=== PATIENT | male | born 1940 | race Hispanic/Latino ===

== ENCOUNTER 2017-06-21 16:09 | Emergency (ER) | payer MEDICARE ==
--- NOTE | 2017-06-21 16:49 | ED PDOC ---
HPI: Psych/Substance Abuse Time Seen by Provider: 06/21/17 16:47 Chief Complaint (Nursing): Psychiatric Evaluation Chief Complaint (Provider): SUICIDAL IDEATION History Per: Patient (77 Y/O MALE HERE FROM [facility] FOR EVALUATION OF DEPRESSION/SUICIDAL IDEATION X 3 WEEKS WORSENING. PATIENT STATES HE WOULD LIKE TO AND IS HOPING GOD WILL TAKE HIM. DENIES ANY PLAN, STATES HE IS JUST WAITING FOR . DENIES ANY PAIN/DENIES ANY REASON FOR CHANGE IN MENTAL STATUS.) Past Medical History Reviewed: Historical Data, Nursing Documentation, Vital Signs Vital Signs: Last Vital Signs Temp 98.5 F 06/21/17 16:14 Pulse 70 06/21/17 16:14 Resp 18 06/21/17 16:14 BP 155/83 H 06/21/17 16:14 Pulse Ox 95 06/21/17 16:14 - Family History Family History: States: No Known Family Hx - Allergies Allergies/Adverse Reactions: Allergies Allergy/AdvReac Type Severity Reaction Status Date / Time No Known Allergies Allergy Verified 06/21/17 16:13 Review of Systems ROS Statement: Except As Marked, All Systems Reviewed And Found Negative Physical Exam - Reviewed Nursing Documentation Reviewed: Yes Vital Signs Reviewed: Yes - Physical Exam Appears: Positive for: Well, Non-toxic, No Acute Distress Head Exam: Positive for: ATRAUMATIC, NORMAL INSPECTION, NORMOCEPHALIC Skin: Positive for: Normal Color, Warm, DRY Eye Exam: Positive for: EOMI, Normal appearance, PERRL ENT: Positive for: Normal ENT Inspection Neck: Positive for: Normal, Painless ROM Cardiovascular/Chest: Positive for: Regular Rate, Rhythm Respiratory: Positive for: CNT, Normal Breath Sounds Gastrointestinal/Abdominal: Positive for: Normal Exam, Soft Back: Positive for: Normal Inspection Extremity: Positive for: Normal ROM Neurologic/Psych: Positive for: Alert, Oriented - Laboratory Results Result Diagrams: 06/21/17 17:26 06/21/17 17:26 - ECG ECG Rhythm: Positive for: Sinus Rhythm (NSR 62BPM; NO ECTOPY NO ACUTE CHANGES) O2 Sat by Pulse Oximetry: 95 - Progress ED Course And Treament: SEEN BY CRISIS D/W DR. DAY PATIENT CLEARED TO D/C BACK TO [facility]. DIAGNOSIS DEPRESSION. Disposition - Clinical Impression Clinical Impression: Depression - Patient ED Disposition Is Patient to be Admitted: No - Disposition Disposition: Other Institution Disposition Time: 19:22 Condition: FAIR Instructions: Depression, Adult (DC) Forms: [employer] ([place])
--- NOTE | 2017-06-21 16:53 | RAD ---
PROCEDURE: CHEST RADIOGRAPH, 1 VIEW HISTORY: ROUTINE COMPARISON: None available. FINDINGS: LUNGS: No acute infiltrate identified bilaterally. PLEURA: No pneumothorax or pleural fluid seen. CARDIOVASCULAR: Potential cardiomegaly. Technical magnification may be an FX. No pulmonary vascular derangement appreciated. OSSEOUS STRUCTURES: No significant abnormalities. VISUALIZED UPPER ABDOMEN: Normal. OTHER FINDINGS: None. IMPRESSION: No acute infiltrate, pleural effusion or pneumothorax identified bilaterally. Borderline cardiomegaly though technical magnification may be in effect.
[2017-06-21 17:13] VITALS: BP 155/83; PULSE 70; RESP 18; TEMP 98.5; O2SAT 95
[2017-06-21 17:27] LABS: SQUAMOUS EPITHIAL < 1 /hpf (0-5); URINE BILIRUBIN NEGATIVE (NEGATIVE); URINE BLOOD NEGATIVE (NEGATIVE); URINE CLARITY CLEAR (Clear); URINE COLOR YELLOW (YELLOW); URINE GLUCOSE (UA) NEG (Normal); URINE LEUKOCYTE ESTERASE NEG Leu/uL (Negative); URINE PROTEIN NEGATIVE (NEGATIVE); URINE UROBILINOGEN 0.2-1.0 mg/dL (0.2-1.0)
[2017-06-21 17:30] LABS: BASO # 0.1 K/uL (0.0-0.2); BASO % 0.9 % (0.0-2.0); EOS # 0.3 K/uL (0.0-0.7); LYMPH # 1.2 K/uL (1.0-4.3); LYMPH % 18.7 % (20.0-40.0); MEAN CORPUSCULAR HEMOGLOBIN 31.8 pg (27.0-31.0); MEAN CORPUSCULAR HGB CONC 34.5 g/dL (33.0-37.0); MEAN PLATELET VOLUME 7.5 fl (7.2-11.7); MONO # 0.4 K/uL (0.0-0.8); MONO % 6.8 % (0.0-10.0); NEUT # 4.6 K/uL (1.8-7.0); NEUT % 69.6 % (50.0-75.0); NRBC % 0.1 % (0.0-0.0); RBC 4.71 Mil/uL (4.40-5.90); RED CELL DISTRIBUTION WIDTH 13.5 % (11.5-14.5); WHITE BLOOD COUNT 6.5 K/uL (4.8-10.8)
[2017-06-21 17:33] LABS: BARBITURATES, UR NEGATIVE (NEGATIVE); BENZODIAZEPINES, UR NEGATIVE (NEGATIVE); OPIATES, UR NEGATIVE (NEGATIVE); PHENCYCLIDINE, UR NEGATIVE (NEGATIVE)
[2017-06-21 17:42] LABS: ALB/GLOB RATIO 1.1 (1.0-2.1); ALBUMIN 3.4 g/dL (3.5-5.0); ALT/SGPT 36 U/L (21-72); AST/SGOT 19 U/L (17-59); BLOOD UREA NITROGEN 17 mg/dl (9-20); GFR AFRICAN-AMERICAN > 60; GFR NON-AFRICAN AMERICAN > 60
[2017-06-21 17:53] LABS: URINE BACTERIA FEW (<OCC)
--- NOTE | 2017-06-22 11:48 | CARD ---
APPROVED REPORT EKG Measurement Heart [id number] IN [id number] <Conclusion> Sinus rhythm with premature atrial complexes Pulmonary disease pattern Incomplete right bundle branch block Left anterior fascicular block Abnormal ECG
== END 2017-06-21 20:59 | disposition home or self-care (01) ==
LOC: H.ER 16:09
DX: F32.9 Major depressive disorder, single episode, unspecified (principal); Z00.8 Encounter for other general examination
CPT/HCPCS: 71045; 80053; 81003; 84443; 84484; 85025; 93005; 99283; G0480